=== PATIENT | female | born 1965 | race Two or more races ===

== ENCOUNTER 2023-05-20 14:37 | Outpatient (CLI) | payer OTHER | END 2023-05-20 14:42 | disposition home or self-care (01) | LOC: SONOGRAMA 14:37 | PROVIDERS: ATTEND Urology | DX: R31.21 Asymptomatic microscopic hematuria (principal) ==

== ENCOUNTER 2023-06-29 10:58 | Outpatient (CLI) | payer OTHER | END 2023-06-29 11:07 | disposition home or self-care (01) | LOC: SONOGRAMA 10:58 | DX: E04.2 Nontoxic multinodular goiter (principal) ==

== ENCOUNTER 2024-09-29 12:25 | Outpatient (CLI) | payer OTHER | END 2024-09-29 12:37 | disposition home or self-care (01) | LOC: SONOGRAMA 12:25 | DX: E04.2 Nontoxic multinodular goiter (principal) ==